=== PATIENT | male | born 1975 | race African-American/Black ===

== ENCOUNTER 2019-02-15 18:50 | Emergency (ER) | payer MEDICARE ==
[~2019-02-15] VITALS: Ht 190.5 cm; Wt 105.7 kg
[2019-02-15] MEDS ORDERED: NORCO 5-325 TA1 EAC1 PO (19:13)
[2019-02-15] MEDS ORDERED: CLEOCIN HCL150 M1 PO (19:13)
[2019-02-15] MEDS ORDERED: NAPROSYN500 MG PO (19:13)
[2019-02-15 19:25] VITALS: BP 142/107
== END 2019-02-15 19:31 | disposition home or self-care (01) ==
LOC: M.ERS 18:50
DX: K04.7 Periapical abscess without sinus (principal); Z88.0 Allergy status to penicillin

== ENCOUNTER 2019-03-16 07:32 | Emergency (ER) | payer MEDICARE ==
[~2019-03-16] VITALS: Ht 190.5 cm; Wt 102.5 kg
[~2019-03-16 07:32] MED LIST: CLEOCIN HCL150 M1 PO; NAPROSYN500 MG PO; NORCO 5-325 TA1 EAC1 PO
[2019-03-16 07:39] VITALS: BP 145/91
[2019-03-16] MEDS ORDERED: METFORMIN HCL500 M3 PO (07:45)
[2019-03-16] MEDS ORDERED: MESTINON60 MG PO (07:46)
[2019-03-16] MEDS ORDERED: RAYOS5 MG PO (07:46)
[2019-03-16] MEDS ORDERED: NORCO 5-325 TA1 EAC1 PO (08:00)
== END 2019-03-16 08:12 | disposition home or self-care (01) ==
LOC: M.ERS 07:32
DX: M72.2 Plantar fascial fibromatosis (principal); Z88.0 Allergy status to penicillin